=== PATIENT | female | born 1985 | race Caucasian/White ===

== ENCOUNTER 2021-12-11 15:02 | Outpatient (CLI) | payer OTHER, SELFPAY ==
[2021-12-11 18:40] LABS: Hemoglobin A1C 5.6 % (<5.7)
[2021-12-11 19:33] LABS: Free T4 Free Thyroxine 1.37 ng/mL (0.78-2.19); Vitamin D 25 Hydroxy 64.6 ng/mL
== END 2021-12-11 15:03 | disposition home or self-care (01) ==
LOC: ANHGOSHLAB 15:03
PROVIDERS: PCP Family Medicine; Visit Provider Family Medicine
DX: E03.9 Hypothyroidism, unspecified (principal); R73.9 Hyperglycemia, unspecified; E55.9 Vitamin D deficiency, unspecified
CPT/HCPCS: 36415; 82306; 83036; 84439; 84443

== ENCOUNTER 2024-03-20 14:41 | Emergency (ER) | payer OTHER, SELFPAY ==
--- NOTE | ~2024-03-20 | XR_ITS ---
XR foot LT min 3V DATE: 03/20/2024 16:00 INDICATION: Dorsal foot pain TECHNIQUE: 4 views COMPARISON: None FINDINGS: Minimal posterior calcaneal enthesopathy. No fracture, dislocation, periosteal reaction or bone destruction, subcutaneous emphysema or radiopaq ue foreign body. IMPRESSION: Minimal posterior calcaneal enthesopathy Reviewed, dictated and finalized at location A. 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
--- NOTE | ~2024-03-20 | XR_ITS ---
XR foot RT min 3V DATE: 03/20/2024 16:00 INDICATION: Dorsal foot pain TECHNIQUE: 4 views COMPARISON: None FINDINGS: No fracture or dislocation, periosteal reaction or bone destruction. 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 IMPRESSION: Minimal osteoarthritis of first metatarsophalangeal joint Reviewed, dictated and finalized at location A. PERSON
[2024-03-20 15:59] VITALS: BP 160/103; PULSE 95; RESP 16; TEMP 36.6; O2SAT 100
--- NOTE | 2024-03-20 16:35 | ED.GENADULT ---
HPI - General Adult General Chief complaint: Extremity Injury, Lower Stated complaint: Left/Right Foot Pain Source: patient Mode of arrival: ambulatory Limitations: no limitations History of Present Illness HPI narrative: Patient presents for evaluation of bilateral foot pain. She indicates around Thanksgiving a spray bottle fell on her left foot. She has had persistent pain in the dorsal aspect of the left foot since that time. She rates her pain as 8/10 in severity. She denies paresthesias. She has tried ibuprofen for her symptoms without much improvement. Approximately 1 week ago she was at a movie and tripped on some steps. She injured her right foot in the process. She reports some bruising and pain in the dorsal aspect of the right foot since that time. Movement makes her symptoms worse. She denies paresthesias. She tried ibuprofen with minimal improvement thereafter. Related Data Home Medications ?Medication ?Instructions ?Recorded ?Confirmed ?Last Taken ?Type cholecalciferol (vitamin D3) 125 125 mcg PO DAILY 12/11/21 12/23/22 Unknown History mcg (5,000 unit) capsule levothyroxine 50 mcg capsule 75 mcg PO DAILY 12/11/21 12/23/22 Unknown History adalimumab 40 mg/0.4 mL mg subcut 03/20/24 Unknown History subcutaneous pen kit (Humira(CF) Pen) azelastine 0.05 % eye drops drp 03/20/24 Unknown History drospirenone (contraceptive) 4 mg 03/20/24 Unknown History (28) tablet (Slynd) etanercept 50 mg/mL (1 mL) mg subcut 03/20/24 Unknown History subcutaneous pen injector (Enbrel SureClick) Allergies Allergy/AdvReac Type Severity Reaction Status Date / Time clavulanic acid (From AdvReac Vomiting Verified 03/20/24 15:58 Augmentin) ethinyl estradiol (From Lo AdvReac Headaches Verified 03/20/24 15:58 Loestrin Fe) ferrous fumarate (From Lo AdvReac Headaches Verified 03/20/24 15:58 Loestrin Fe) Review of Systems Review of Systems: CONSTITUTIONAL: Denies fever, chills, or sweats. EYES: Denies visual changes, redness, or discharge. ENT: Denies rhinorrhea, congestion, sore throat, or otalgia. CARDIOVASCULAR: Denies chest pain, palpitations, or edema. RESPIRATORY: Denies cough or dyspnea. GASTROINTESTINAL: Denies abdominal pain, nausea, vomiting, or diarrhea. GENITOURINARY: Denies dysuria or hematuria. SKIN: Reports bruising to the dorsal aspect right foot MUSCULOSKELETAL: reports pain in both feet NEUROLOGIC: Denies headache, numbness, dizziness, or weakness. PSYCHIATRIC: Denies anxiety or depression. 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; father in [place] after CABG and stroke in May Caffeine-daily Smoking status: Never smoker Alcohol intake: never Substance use: never Substance use type: does not use Lack of Transportation: YES Lack of Food: Never True Current Housing: I Have Housing Concerned About Future Housing: No Difficulty Paying Gas/Electric Bills: No Difficulty Paying for Meds: No Currently Unemployed: No Education: Master's Degree or Higher Difficulty w/ Childcare or Family Care: No Living arrangements: with family Occupation/Education: occupation Gender identity (if verbalized by the patient): Female Exam Narrative: GENERAL: Well-appearing, well-nourished, and in no acute distress. HEAD: Normocephalic, atraumatic. EYES: PERRLA and EOMI. ENT: Nares clear, no rhinorrhea or epistaxis. Mucous membranes moist. Oropharynx without tonsillar hypertrophy exudate or other lesions. Bilateral TMs pearly crawford nonbulging NECK: Supple. No adenopathy or masses. No carotid bruits or JVD CHEST: Clear to auscultation. No respiratory distress. No wheezes rales or rhonchi HEART: Regular rate and rhythm. No murmur heard. Normal peripheral pulses. ABDOMEN: Soft, nontender, nondistended, normal active bowel sounds. EXTREMITIES: able to dorsi and plantar flex both feet. There is trace swelling noted to the dorsal aspect of the right foot. There is tenderness over the 2nd, 3rd, 4th MTP joints of the right foot. She is able to wiggle all digits the right foot. There is mild tenderness to the dorsal aspect of the left foot. No gross swelling. No deformity SKIN: there is ecchymosis noted to the dorsal aspect of the right foot overlying the 2nd, 3rd, 4th, MTP joints NEURO: No focal deficits. Alert and oriented x3. PSYCH: Normal mood and affect. Course Course Emergency Course: this is a 38-year-old female who presented for evaluation pain in both feet following two injuries. x-rays were negative for fracture. Exam is consistent with contusions. She has already tried NSAIDs without much improvement. Will try tramadol. Follow-up with podiatry. Go to the ER for intractable pain. Patient in agreement with plan of care Level of Care: Express Care Visit Vital Signs Vital signs: Vital Signs Temperature 36.6 C 03/20/24 15:59 Pulse Rate 95 03/20/24 15:59 Respiratory Rate 16 03/20/24 15:59 Blood Pressure 160/103 H 03/20/24 15:59 Pulse Oximetry 100 03/20/24 15:59 Temperature 36.6 C 03/20/24 15:59 Pulse Rate 95 03/20/24 15:59 Respiratory Rate 16 03/20/24 15:59 Blood Pressure 160/103 H 03/20/24 15:59 Pulse Oximetry 100 03/20/24 15:59 Medical Decision Making Vital Signs Vital Signs: Vital Signs Temperature 36.6 C 03/20/24 15:59 Pulse Rate 95 03/20/24 15:59 Respiratory Rate 16 03/20/24 15:59 Blood Pressure 160/103 H 03/20/24 15:59 Pulse Oximetry 100 03/20/24 15:59 Temperature 36.6 C 03/20/24 15:59 Pulse Rate 95 03/20/24 15:59 Respiratory Rate 16 03/20/24 15:59 Blood Pressure 160/103 H 03/20/24 15:59 Pulse Oximetry 100 03/20/24 15:59 Imaging Data Radiologist's impression: XR foot LT min 3V DATE: 03/20/2024 16:00 INDICATION: Dorsal foot pain TECHNIQUE: 4 views COMPARISON: None FINDINGS: Minimal posterior calcaneal enthesopathy. No fracture, dislocation, periosteal reaction or bone destruction, subcutaneous emphysema or radiopaque foreign body. IMPRESSION: Minimal posterior calcaneal enthesopathy XR foot RT min 3V DATE: 03/20/2024 16:00 INDICATION: Dorsal foot pain TECHNIQUE: 4 views COMPARISON: None FINDINGS: No fracture or dislocation, periosteal reaction or bone destruction. 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 IMPRESSION: Minimal osteoarthritis of first metatarsophalangeal joint Discharge Plan Discharge Clinical Impression: Contusion of foot, left, Contusion of foot, right Patient Disposition: Home, Self-Care Condition: Stable Instructions: Antibiotic Form, Contusion in Adults (ED) Patient Language: [place]er Prescriptions: New tramadol 50 mg tablet 50 mg PO Q6H PRN (Reason: pain) Qty: 12 0RF No Action azelastine 0.05 % drops Enbrel SureClick 50 mg/mL (1 mL) pen injector SUBCUT Humira(CF) Pen 40 mg/0.4 mL pen injector kit SUBCUT Slynd 4 mg (28) tablet cetirizine [Zyrtec] 10 mg tablet 10 mg PO DAILY Qty: 30 0RF levothyroxine 50 mcg capsule 75 mcg PO DAILY cholecalciferol (vitamin D3) 125 mcg (5,000 unit) capsule 125 mcg PO DAILY triamcinolone acetonide 0.1 % cream 1 applic topical BID Qty: 453.6 0RF albuterol sulfate 90 mcg/actuation HFA aerosol inhaler 2 puff inhalation Q4H PRN (Reason: shortness of breath or wheezing) Qty: 8.5 0RF Follow-up/Referrals: Irving,Wendie Medina DPM [Non-Staff] - Rosa Maria,Alpa Morgan APRN [Primary Care Provider] - Time of Disposition: 16:34
== END 2024-03-20 16:41 | disposition home or self-care (01) ==
PROVIDERS: Emergency Provider Nurse Practitioner; PCP Nurse Practitioner Family
DX: S90.32XA Contusion of left foot, initial encounter (principal); W20.8XXA Other cause of strike by thrown, projected or falling object, initial encounter; S90.31XA Contusion of right foot, initial encounter; W10.9XXA Fall (on) (from) unspecified stairs and steps, initial encounter; J45.909 Unspecified asthma, uncomplicated; L40.9 Psoriasis, unspecified
CPT/HCPCS: 73630; 99213; G0463